=== PATIENT | female | born 1945 | race Two or more races ===

== ENCOUNTER 2020-10-27 06:29 | Inpatient (IN) | payer MEDICAID, MEDICARE ==
[2020-10-27] VITALS (7 sets, daily range): BP systolic 122–180; BP diastolic 66–100
[~2020-10-27] VITALS: Ht 160 cm; Wt 45.4 kg
--- NOTE | 2020-10-27 06:43 | Emergency Room Report ---
History of Present Illness General Chief Complaint: Dyspnea/Respdistress Present Illness HPI 75-year-old female with history of congestive heart failure and sarcoidosis here with shortness of breath. Patient says that she suffers from chronic shortness of breath but it has acutely worsened over the past 3 weeks and then acutely worsened even more so over the past 24 hours. Says that she now also has severe orthopnea. She is on 2.5 L nasal cannula at home as needed. She has been using this but still feels severely short of breath. She is also complaining of chest tightness in the substernal region that radiates to her left shoulder. This has been ongoing for about 24 hours as well. Denies headache, vision changes, fevers, chills, cough, back pain, abdominal pain, nausea, vomiting, dysuria. Says that she has had some loose stools over the past 24 hours as well. Does not know whether she has been exposed to Covid. Allergies: Coded Allergies: No Known Allergies (Unverified , 10/27/20) COVID-19 Screening Contact w/high risk pt: No Experienced COVID-19 symptoms?: No COVID-19 Testing performed FRUIT COORDINATOR: No Patient History Now: No Nursing Documentation-PMH Hx Cardiac Problems: Yes - defibulator Hx Hypertension: Yes Review of Systems All Other Systems: negative except mentioned in HPI Physical Exam Vital Signs Date Time Temp Pulse Resp B/P (MAP) Pulse Ox O2 Delivery O2 Flow Rate FiO2 10/27/20 06:30 99.0 93 22 166/93 (117) 91 Room Air Sp02 EP Interpretation: reviewed, normal General Appearance: no apparent distress, alert, non-toxic Head: normocephalic, atraumatic Eyes: bilateral eye normal inspection, bilateral eye PERRL ENT: hearing grossly normal, normal pharynx, no angioedema, normal voice Neck: full range of motion, supple/symm/no masses Respiratory: chest non-tender, normal breath sounds, speaking full sentences, other - Tachypneic and use of accessory musculature. Rales in all lung ambrose Cardiovascular #1: no edema, other - Echocardiogram 116 bpm, regular rhythm Cardiovascular #2: 2+ carotid (R), 2+ carotid (L), 2+ radial (R), 2+ radial (L), 2+ dorsalis pedis (R), 2+ dorsalis pedis (L) Gastrointestinal: normal bowel sounds, non tender, soft, non-distended, no guarding, no rebound Rectal: deferred Genitourinary: normal inspection, no CVA tenderness Musculoskeletal: back normal, normal range of motion, gait/station normal, non- tender Neurologic: alert, motor strength/tone normal, oriented x3, sensory intact, responsive, speech normal Psychiatric: judgement/insight normal, memory normal, mood/affect normal, no suicidal/homicidal ideation Lymphatic: no adenopathy Medical Decision Making Diagnostic Impression: Primary Impression: Dyspnea Additional Impressions: Respiratory distress Respiratory acidosis CHF (congestive heart failure) NSTEMI (non-ST elevated myocardial infarction) Pneumonia Hypertensive emergency ER Course EKG: NSR 107 bpm, no ischemia, intervals WNL. No ectopy. Left ventricular hypertrophy. T wave inversions in V4, V5, V6, 1. Rhythm strip: patient monitored for arrhythmias - no malignant dysrhythmias, runs of PVCs, nor pauses noted Total critical care time: Approximately 45 minutes Due to a high probability of clinically significant, life threatening deterioration, the patient required the highest level of preparedness to intervene emergently and I personally spent this critical care time directly and personally managing the patient. This critical care time included obtaining a history, examining the patient, pulse oximetry, ordering and reviewing studies, ordering treatments, evaluating response to treatment and updating management plan as needed, frequent reassessment and discussion with other providers as well as arranging for ultimate disposition. This critical to care time was performed to assess and manage the high probability of life-threatening deterioration that could result in multiorgan failure. This critical care time is separate from the separately billable procedures and treating other patients. Laboratory Tests Test 10/27/20 06:45 10/27/20 06:50 10/27/20 07:25 White Blood Count 7.1 K/UL (4.8-10.8) Red Blood Count 4.92 M/UL (4.20-5.40) Hemoglobin 12.9 G/DL (12.0-16.0) Hematocrit 39.5 % (37.0-47.0) Mean Corpuscular Volume 80 FL (80-99) Mean Corpuscular Hemoglobin 26.2 PG (27.0-31.0) L Mean Corpuscular Hemoglobin Concent 32.7 G/DL (32.0-36.0) Red Cell Distribution Width 16.5 % (11.6-14.8) H Platelet Count 195 K/UL (150-450) Mean Platelet Volume 9.1 FL (6.5-10.1) Neutrophils (%) (Auto) 53.4 % (45.0-75.0) Lymphocytes (%) (Auto) 34.2 % (20.0-45.0) Monocytes (%) (Auto) 9.3 % (1.0-10.0) Eosinophils (%) (Auto) 1.4 % (0.0-3.0) Basophils (%) (Auto) 1.8 % (0.0-2.0) Prothrombin Time 11.8 SEC (9.30-11.50) H Prothrombin Time INR 1.1 (0.9-1.1) Activated Partial Thromboplast Time 28 SEC (23-33) D-Dimer 2.02 mg/L FEU (0.00-0.49) H Sodium Level 141 MMOL/L (136-145) Potassium Level 3.9 MMOL/L (3.5-5.1) Chloride Level 106 MMOL/L (98-107) Carbon Dioxide Level 32 MMOL/L (21-32) Anion Gap 3 mmol/L (5-15) L Blood Urea Nitrogen 8 mg/dL (7-18) Creatinine 1.0 MG/DL (0.55-1.30) Estimated Glomerular Filtration Rate 53.9 mL/min (>60) Glucose Level 124 MG/DL (74-106) H Lactic Acid Level 1.60 mmol/L (0.4-2.0) Calcium Level 8.7 MG/DL (8.5-10.1) Magnesium Level 2.0 MG/DL (1.8-2.4) Ferritin 58 NG/ML (8-388) Total Bilirubin 0.4 MG/DL (0.2-1.0) Aspartate Amino Transferase (AST) 27 U/L (15-37) Alanine Aminotransferase (ALT) 23 U/L (12-78) Alkaline Phosphatase 72 U/L (46-116) Lactate Dehydrogenase 225 U/L (81-234) Total Creatine Kinase 49 U/L (26-308) Creatine Kinase MB 1.6 NG/ML (0.0-3.6) Creatine Kinase MB Relative Index 3.2 Troponin I 0.082 ng/mL (0.000-0.056) C-Reactive Protein, Quantitative 2.9 mg/dL (0.00-0.90) H Pro-B-Type Natriuretic Peptide 18869 pg/mL (0-125) H Total Protein 7.7 G/DL (6.4-8.2) Albumin 3.2 G/DL (3.4-5.0) L Globulin 4.5 g/dL Albumin/Globulin Ratio 0.7 (1.0-2.7) L Lipase 56 U/L (73-393) L Arterial Blood pH 7.289 (7.350-7.450) Arterial Blood Partial Pressure CO2 66.5 mmHg (35.0-45.0) *H Arterial Blood Partial Pressure O2 237.9 mmHg (75.0-100.0) H Arterial Blood HCO3 31.2 mmol/L (22.0-26.0) H Arterial Blood Oxygen Saturation 99.3 % (95-100) Arterial Blood Base Excess 2.8 (-2-2) H Percy Test Positive Urine Color [place] Urine Appearance Very cloudy Urine pH 8 (4.5-8.0) Urine Specific [place] 1.015 (1.005-1.035) Urine Protein 4+ (NEGATIVE) H Urine Glucose (UA) Negative (NEGATIVE) Urine Ketones 1+ (NEGATIVE) H Urine Blood 5+ (NEGATIVE) H Urine Nitrite Positive (NEGATIVE) H Urine Bilirubin Negative (NEGATIVE) Urine Urobilinogen 1 MG/DL (0.0-1.0) H Urine Leukocyte Esterase 2+ (NEGATIVE) H Urine RBC Tntc /HPF (0 - 2) H Urine WBC 5-10 /HPF (0 - 2) H Urine Squamous Epithelial Cells Few /LPF (NONE/OCC) Urine Bacteria Moderate /HPF (NONE) H Microbiology Date/Time Source Procedure Growth Status 10/27/20 07:20 Nose - Final Complete 10/27/20 07:20 Nose - Final Complete Chest x-ray: AICD in place. Large effusion versus consolidation of the majority of the right lung field. Small pleural effusion in the left lung. 75-year-old female with history of CHF and sarcoidosis on oxygen therapy at home here with shortness of breath. Patient oxygen saturation in the low 90s on room air. She was placed on 4 L nasal cannula with improvement in her hypoxia however she continued to exhibit evidence of shortness of breath. ABG showed that the patient was suffering from a respiratory acidosis with an elevated PCO2 and a low pH. She was immediately placed on BiPAP. Patient was highly anxious and was given 0.5 mg of Ativan with good resolution of her anxiety. She remained hemodynamically stable and appeared much improved on the BiPAP. Chest x-ray showed near whiteout of the entire right lung field with a large pleural effusion. Patient also had mildly elevated BNP of greater than 16,000. This appeared to be related to CHF versus a possible pneumonia. Patient showed evidence of urinary tract infection on urinalysis. She received ceftriaxone and azithromycin for coverage of UTI as well as community-acquired pneumonia. Patient has not been admitted to the hospital within the past several months. Flu negative. She was initially hypertensive with a blood pressure of around 190/100. She received hydralazine and sublingual nitroglycerin with good resolution of her hypertension. Repeat blood pressure was 138/79 and remained around this range for the rest of her stay in the emergency department. Patient to be admitted to stepdown unit. Last Vital Signs Date Time Temp Pulse Resp B/P (MAP) Pulse Ox O2 Delivery O2 Flow Rate FiO2 10/27/20 06:30 99.0 93 22 166/93 (117) 91 Room Air Scripts Unable to Obtain Active Prescriptions or Reported Meds Kavon Rouse M.D. Oct 27, 2020 06:43
[2020-10-27] MEDS ORDERED: LORazepam Inj 2mg/ml 1ml ONE (07:15)
[2020-10-27] MEDS ORDERED: LORazepam Inj 2mg/ml 1ml IV ONE (07:15)
[2020-10-27 07:31] LABS: CALCIUM 8.7 MG/DL (8.5-10.1); POTASSIUM 3.9 MMOL/L (3.5-5.1)
[2020-10-27 07:32] LABS: APPEARANCE,URINE VERY CLOUDY; BILIRUBIN, URINE NEGATIVE (NEGATIVE); COLOR,URINE ORANGE; GLUCOSE, URINE (UA) NEGATIVE (NEGATIVE); KETONES,URINE 1+ (NEGATIVE); LEUKOCYTE ESTERASE ,URINE 2+ (NEGATIVE); NITRITE,URINE POSITIVE (NEGATIVE); PH,URINE 8 (4.5-8.0); PROTEIN,URINE 4+ (NEGATIVE); UROBILINOGEN,URINE 1 MG/DL (0.0-1.0)
[2020-10-27 07:34] LABS: INR 1.1 (0.9-1.1)
[2020-10-27 07:35] LABS: BASOPHILS % (AUTO) 1.8 % (0.0-2.0); EOSINOPHILS % (AUTO) 1.4 % (0.0-3.0); HEMATOCRIT 39.5 % (37.0-47.0); HEMOGLOBIN 12.9 G/DL (12.0-16.0); LYMPHOCYTES % (AUTO) 34.2 % (20.0-45.0); MEAN CORPUSCULAR VOLUME 80 FL (80-99); MONOCYTES % (AUTO) 9.3 % (1.0-10.0); NEUTROPHILS % (AUTO) 53.4 % (45.0-75.0); PLATELET COUNT 195 K/UL (150-450); RED BLOOD COUNT 4.92 M/UL (4.20-5.40); RED CELL DISTRIBUTION WIDTH 16.5 % (11.6-14.8); WHITE BLOOD COUNT 7.1 K/UL (4.8-10.8)
[2020-10-27] MEDS: Nitroglycerin Subl 0.4mg tab SL PRN (07:40)
[2020-10-27] MEDS ORDERED: cefTRIAXone 1 GM in NS 55 ML IVPB ONE (07:45)
[2020-10-27 07:51] LABS: ALBUMIN 3.2 G/DL (3.4-5.0); ALBUMIN/GLOBULIN RATIO 0.7 (1.0-2.7); BILIRUBIN,TOTAL 0.4 MG/DL (0.2-1.0); CKMB 1.6 NG/ML (0.0-3.6)
[2020-10-27] MEDS ORDERED: Azithromycin 500 MG in NS 275 ML IV ONE (08:15)
--- NOTE | 2020-10-27 14:18 | Diagnostic Imaging Report ---
Indication: Reason For Exam: SOB Technique: Single AP view of the chest. Comparison: None. Findings: Evaluation of the heart is limited due to overlapping shadows. There is marked left to right shift of the mediastinum. There is a large right pleural effusion with likely resulting atelectasis of the right lobe. There is a small amount of visible aerated right upper lobe. There is diffuse parenchymal thickening. Likely small left pleural effusion with associated streaky airspace opacities. Left approach ICD/pacemaker in situ. IMPRESSION: 1. Large right pleural effusion with likely right lower lobe collapse and resulting left to right mediastinal shift. 2. Diffuse bronchial thickening suggestive of infectious/inflammatory airways disease or atypical pneumonia. 3. Likely small left pleural effusion with associated basilar atelectasis.
[2020-10-27] MEDS: Heparin 5000 units/ml inj SUBQ SCH (20:55)
--- NOTE | 2020-10-27 21:15 | HX and Phyl Repo 2 Sig ---
DATE OF ADMISSION: 10/27/2020 REASON FOR ADMISSION: Shortness of breath. HISTORY OF PRESENT ILLNESS: This is a 75-year-old female with past medical history of hypertension, CHF, and sarcoidosis presented to ER for 3-week history of shortness of breath, which has significantly worsened 1 day ago. Patient states she suffers from chronic shortness of breath and uses 2.5 L oxygen nasal cannula at home as needed. She also complains of chest tightness in the substernal region that radiates to her left shoulder for 24 hours. She states she had some loose stools over 24 hours as well. Chest x-ray showed large left pleural effusion with likely right lower lobe collapse. ABG showed that the patient was suffering from a respiratory acidosis and was placed on BiPAP. The repeat ABG 2 hours later was much better. Currently, she is saturating at 97% on 3 L nasal cannula. Urinalysis showed evidence of UTI. Patient's BNP was greater than 16,000. Troponin was 0.082. COVID-19 test was negative. She received antibiotics. She is now admitted to the hospital for further management and care. PAST MEDICAL HISTORY: Hypertension, CHF, and sarcoidosis. PAST SURGICAL HISTORY: None reported. TRAVEL HISTORY: None reported. REVIEW OF SYSTEMS: HEENT: Denies any headaches, blurry vision, hoarseness, dysphagia, hearing loss, tinnitus, or loss of balance. CHEST AND LUNGS: Denies any chest discomfort or hemoptysis. CARDIOVASCULAR: Denies any exertional chest pain, pressure, palpitations, PND, or ankle swelling. She does report orthopnea. GASTROINTESTINAL: Denies vomiting, abdominal pain, or oily or foul-smelling stools. No constipation or hematochezia. GENITOURINARY: Denies any frequency, urgency, dysuria, hematuria, flank pain, kidney stone, or kidney disease. NEUROLOGICAL: Denies seizure activity, dizziness, or fainting episodes. PHYSICAL EXAMINATION: VITAL SIGNS: Blood pressure 138/71, heart rate 89, respirations 24, weight 45 kg, height 160 cm. HEENT: Head exam reveals that the head is normocephalic, atraumatic without deformity or unusual swelling. Pupils are round, reactive to light and accommodation normally. There is no nystagmus, lid lag, or exophthalmos. Nasal mucosa is pink. Vision is normal. CHEST AND LUNGS: Reveals decreased breath sounds. There is no surgical scar. CARDIOVASCULAR: Reveals normal S1, S2 without murmurs, rubs, or clicks. ABDOMEN: Soft with no tenderness or organomegaly. RECTAL: Deferred. MUSCULOSKELETAL: There is no tenderness to palpation. Range of motion is normal. EXTREMITIES: There is no cyanosis, peripheral edema, or clubbing. There is no evidence of insufficiency or skin changes. Pedal pulses are strong and bounding. NEUROLOGICAL: Cranial nerves II through XII are intact. Gait is normal without ataxia. DTRs are normal. Babinski is downgoing. LABORATORY DATA: CBC unremarkable. Chemistries show anion gap of 3, glucose of 124. CRP 2.9. BNP 16,095. Urinalysis shows 4+ protein, 1+ ketones, 5+ blood, positive nitrite, 2+ leukocyte esterase, and moderate urine bacteria. IMPRESSION: 1. CHF. 2. Respiratory acidosis. 3. UTI. Admit to stepdown unit. Oxygen was started. IV fluids, DVT prophylaxis. We will follow carefully. The care for this patient was discussed with my supervising physician. Time spent for this case was approximately 31 minutes. Pranav Morales M.D. CIRA Dillon DR: SUE JOB#: [id number] CC: [email or web address]
[2020-10-28] VITALS: BP 120/70
[2020-10-28 04:00] VITALS: BP 137/70
[2020-10-28 05:33] LABS: CALCIUM 8.9 MG/DL (8.5-10.1); POTASSIUM 4.9 MMOL/L (3.5-5.1)
[2020-10-28 06:24] LABS: BASOPHILS % (AUTO) 1.6 % (0.0-2.0); EOSINOPHILS % (AUTO) 2.2 % (0.0-3.0); HEMATOCRIT 43.2 % (37.0-47.0); HEMOGLOBIN 13.6 G/DL (12.0-16.0); MEAN CORPUSCULAR VOLUME 83 FL (80-99); MONOCYTES % (AUTO) 9.5 % (1.0-10.0); NEUTROPHILS % (AUTO) 61.7 % (45.0-75.0); PLATELET COUNT 188 K/UL (150-450); RED BLOOD COUNT 5.22 M/UL (4.20-5.40); RED CELL DISTRIBUTION WIDTH 15.3 % (11.6-14.8); WHITE BLOOD COUNT 5.6 K/UL (4.8-10.8)
[2020-10-28] MEDS: Nitroglycerin Subl 0.4mg tab SL PRN (06:29)
[2020-10-28 08:00] VITALS: BP 120/67
[2020-10-28] MEDS: Pantoprazole Inj IV SCH (08:51)
[2020-10-28] MEDS: Heparin 5000 units/ml inj SUBQ SCH ×2 (08:51→20:43)
--- NOTE | 2020-10-28 09:25 | Consultation ---
History of Present Illness General Chief Complaint: Dyspnea/Respdistress Referring physician: Dr. Morales Reason for Consultation: CHF Present Illness HPI 75 yo F admitted through the ER yesterday c/o left sided chest pain and SOB worsening over the last 2 days. PMHx CHF, chronic O2 dependence, COPD. No documented hx of MS or PCI. Work up in the ER positive for UTI, CXR large pleural effusion and collapse of RLL. BNP severely elevated, troponin 0.082. We are asked to see the pt for ACS r/o and management of CHF exacerbation along with other cardiac issues. Allergies: Coded Allergies: No Known Allergies (Unverified , 10/27/20) Medication History Unable to Obtain Active Prescriptions or Reported Meds Patient History Limited by: medical condition History Provided By: Medical Record Healthcare decision maker Resuscitation status Advanced Directive on File Physical Exam Last 24 Hour Vital Signs Date Time Temp Pulse Resp B/P (MAP) Pulse Ox O2 Delivery O2 Flow Rate FiO2 10/28/20 08:00 97.1 96 17 120/67 (84) 95 10/28/20 06:29 127/72 10/28/20 04:00 Nasal Cannula 2.0 10/28/20 04:00 2.0 10/28/20 04:00 97.7 99 18 137/70 (92) 100 10/28/20 03:54 95 10/28/20 00:00 2.0 10/28/20 00:00 Nasal Cannula 2.0 10/28/20 00:00 101 10/28/20 00:00 96.8 92 16 120/70 (87) 100 10/27/20 20:00 Nasal Cannula 2.0 10/27/20 20:00 97.7 94 18 122/77 (92) 100 10/27/20 19:48 2.0 10/27/20 19:34 94 10/27/20 19:24 109 10/27/20 16:00 2.0 10/27/20 16:00 Nasal Cannula 2.0 10/27/20 16:00 97.5 94 18 155/89 (111) 100 10/27/20 15:42 95 10/27/20 15:25 98.8 89 24 138/71 98 Nasal Cannula 2.0 10/27/20 14:33 98.8 92 25 143/78 99 Room Air 35 10/27/20 13:40 99.0 94 27 152/95 100 Room Air 10/27/20 10:28 99.0 102 25 144/66 99 Bi-pap 35 Intake and Output 10/27/20 10/28/20 19:00 07:00 Intake Total 330 ml 240 ml Balance 330 ml 240 ml Intake Oral 240 ml IV Total 330 ml # Voids 1 Laboratory Tests Test 10/27/20 10:26 10/28/20 04:15 Arterial Blood pH 7.355 (7.350-7.450) Arterial Blood Partial Pressure CO2 54.0 mmHg (35.0-45.0) H Arterial Blood Partial Pressure O2 127.1 mmHg (75.0-100.0) H Arterial Blood HCO3 29.5 mmol/L (22.0-26.0) H Arterial Blood Oxygen Saturation 98.9 % (95-100) Arterial Blood Base Excess 2.9 (-2-2) H Percy Test Positive White Blood Count 5.6 K/UL (4.8-10.8) Red Blood Count 5.22 M/UL (4.20-5.40) Hemoglobin 13.6 G/DL (12.0-16.0) Hematocrit 43.2 % (37.0-47.0) Mean Corpuscular Volume 83 FL (80-99) Mean Corpuscular Hemoglobin 26.1 PG (27.0-31.0) L Mean Corpuscular Hemoglobin Concent 31.5 G/DL (32.0-36.0) L Red Cell Distribution Width 15.3 % (11.6-14.8) H Platelet Count 188 K/UL (150-450) Mean Platelet Volume 9.8 FL (6.5-10.1) Neutrophils (%) (Auto) 61.7 % (45.0-75.0) Lymphocytes (%) (Auto) 25.0 % (20.0-45.0) Monocytes (%) (Auto) 9.5 % (1.0-10.0) Eosinophils (%) (Auto) 2.2 % (0.0-3.0) Basophils (%) (Auto) 1.6 % (0.0-2.0) Sodium Level 143 MMOL/L (136-145) Potassium Level 4.9 MMOL/L (3.5-5.1) Chloride Level 107 MMOL/L (98-107) Carbon Dioxide Level 33 MMOL/L (21-32) H Anion Gap 3 mmol/L (5-15) L Blood Urea Nitrogen 11 mg/dL (7-18) Creatinine 1.0 MG/DL (0.55-1.30) Estimat Glomerular Filtration Rate 53.9 mL/min (>60) Glucose Level 79 MG/DL (74-106) Calcium Level 8.9 MG/DL (8.5-10.1) Troponin I 0.097 ng/mL (0.000-0.056) Thyroid Stimulating Hormone (TSH) 0.584 uiU/mL (0.358-3.740) Height (Feet): 5 Height (Inches): 3.00 Weight (Pounds): 100 Medications Current Medications Medications (Trade) Dose Ordered Sig/Elsie Route PRN Reason Start Time Stop Time Status Last Admin Dose Admin Acetaminophen (Tylenol) 650 mg Q4H PRN ORAL Mild Pain (Pain Scale 1-3) 10/27/20 18:00 11/26/20 17:59 Dextrose (Dextrose 50%) 25 ml Q30M PRN IV Hypoglycemia 10/27/20 18:00 01/25/21 17:59 Dextrose (Dextrose 50%) 50 ml Q30M PRN IV Hypoglycemia 10/27/20 18:00 01/25/21 17:59 Furosemide (Lasix) 40 mg DAILY IV 10/28/20 09:00 11/27/20 08:59 10/28/20 08:51 Heparin Sodium (Porcine) (Heparin 5000 units/ml) 5,000 units EVERY 12 HOURS SUBQ 10/27/20 21:00 12/11/20 20:59 10/28/20 08:51 Nitroglycerin (Ntg) 0.4 mg Q5M PRN SL Prn Chest Pain 10/27/20 07:00 11/26/20 06:59 10/28/20 06:29 Pantoprazole (Protonix) 40 mg DAILY IV 10/28/20 09:00 11/27/20 08:59 10/28/20 08:51 Priscilla Archer PA-C Oct 28, 2020 09:25
[2020-10-28 12:00] VITALS: BP 122/78
--- NOTE | 2020-10-28 12:53 | Cardiac Electrophysiology PN ---
Subjective Subjective EP consult dictated. My office pt.VT. S/P ICD by me. PAF, CHF, CAD [id number] Objective Last 24 Hour Vital Signs Date Time Temp Pulse Resp B/P (MAP) Pulse Ox O2 Delivery O2 Flow Rate FiO2 10/28/20 12:00 1.0 10/28/20 12:00 Room Air 10/28/20 12:00 97.1 96 17 122/78 (93) 95 10/28/20 08:00 97.1 96 17 120/67 (84) 95 10/28/20 08:00 Room Air 10/28/20 08:00 2.0 10/28/20 08:00 100 10/28/20 06:29 127/72 10/28/20 04:00 Nasal Cannula 2.0 10/28/20 04:00 2.0 10/28/20 04:00 97.7 99 18 137/70 (92) 100 10/28/20 03:54 95 10/28/20 00:00 2.0 10/28/20 00:00 Nasal Cannula 2.0 10/28/20 00:00 101 10/28/20 00:00 96.8 92 16 120/70 (87) 100 10/27/20 20:00 Nasal Cannula 2.0 10/27/20 20:00 97.7 94 18 122/77 (92) 100 10/27/20 19:48 2.0 10/27/20 19:34 94 10/27/20 19:24 109 10/27/20 16:00 2.0 10/27/20 16:00 Nasal Cannula 2.0 10/27/20 16:00 97.5 94 18 155/89 (111) 100 10/27/20 15:42 95 10/27/20 15:25 98.8 89 24 138/71 98 Nasal Cannula 2.0 10/27/20 14:33 98.8 92 25 143/78 99 Room Air 35 10/27/20 13:40 99.0 94 27 152/95 100 Room Air Intake and Output 10/27/20 10/28/20 19:00 07:00 Intake Total 330 ml 240 ml Balance 330 ml 240 ml Intake Oral 240 ml IV Total 330 ml # Voids 1 Laboratory Tests Test 10/28/20 04:15 White Blood Count 5.6 K/UL (4.8-10.8) Red Blood Count 5.22 M/UL (4.20-5.40) Hemoglobin 13.6 G/DL (12.0-16.0) Hematocrit 43.2 % (37.0-47.0) Mean Corpuscular Volume 83 FL (80-99) Mean Corpuscular Hemoglobin 26.1 PG (27.0-31.0) L Mean Corpuscular Hemoglobin Concent 31.5 G/DL (32.0-36.0) L Red Cell Distribution Width 15.3 % (11.6-14.8) H Platelet Count 188 K/UL (150-450) Mean Platelet Volume 9.8 FL (6.5-10.1) Neutrophils (%) (Auto) 61.7 % (45.0-75.0) Lymphocytes (%) (Auto) 25.0 % (20.0-45.0) Monocytes (%) (Auto) 9.5 % (1.0-10.0) Eosinophils (%) (Auto) 2.2 % (0.0-3.0) Basophils (%) (Auto) 1.6 % (0.0-2.0) Sodium Level 143 MMOL/L (136-145) Potassium Level 4.9 MMOL/L (3.5-5.1) Chloride Level 107 MMOL/L (98-107) Carbon Dioxide Level 33 MMOL/L (21-32) H Anion Gap 3 mmol/L (5-15) L Blood Urea Nitrogen 11 mg/dL (7-18) Creatinine 1.0 MG/DL (0.55-1.30) Estimat Glomerular Filtration Rate 53.9 mL/min (>60) Glucose Level 79 MG/DL (74-106) Calcium Level 8.9 MG/DL (8.5-10.1) Troponin I 0.097 ng/mL (0.000-0.056) Thyroid Stimulating Hormone (TSH) 0.584 uiU/mL (0.358-3.740) Microbiology Date/Time Source Procedure Growth Status 10/27/20 07:25 Urine,Clean Catch Urine Culture - Preliminary Gram Negative Jarrett Resulted 10/27/20 07:20 Nose - Final Complete 10/27/20 07:20 Nose - Final Complete 10/27/20 07:20 Nasopharynx SARS-CoV-2 RdRp Gene Assay - Final Complete Derrell Naranjo MD Oct 28, 2020 12:53
[2020-10-28 15:36] VITALS: BP 138/90
--- NOTE | 2020-10-28 15:45 | Consultation ---
DATE OF CONSULTATION: 10/28/2020 CARDIAC ELECTROPHYSIOLOGY CONSULTATION CONSULTING PHYSICIAN: Derrell Naranjo MD REFERRING PHYSICIAN: Pranav Morales MD REASON FOR CONSULTATION: Management of atrial fibrillation and evaluation of patient's defibrillator and long-term ventricular tachycardia. HISTORY OF PRESENT ILLNESS: Patient is a 75-year-old lady, with I am quite familiar from multiple previous hospitalizations as well as my office visits. Patient has history of hypertension and coronary artery disease with 95% circumflex stenosis as well as history of severe cardiomyopathy, ejection fraction of 18 to 20%, who underwent a dual-chamber [employer] Kevin defibrillator implantation by mi in May of 2013. Patient also has history of severe pulmonary sarcoidosis and cardiac dextroversion due to severe pulmonary fibrosis and scar. Patient presented to the emergency room with left-sided chest pain and shortness of breath, worse in the last 2 days. Patient was admitted and a cardiac electrophysiology consultation was requested in view of patient's runs of ventricular tachycardia. REVIEW OF SYSTEMS: Negative other than what was mentioned in the history of present illness. PAST MEDICAL HISTORY: As mentioned above. FAMILY HISTORY: Noncontributory. SOCIAL HISTORY: She lives at home. Does not smoke or drink alcohol. PHYSICAL EXAMINATION: VITAL SIGNS: Show blood pressure of 122/78, pulse is 96, respirations 18, temperature 97.1. HEAD AND NECK: Shows positive JVD. LUNGS: Clear. CARDIOVASCULAR: Shows regular S1 and S2 with no gallop or murmur. Defibrillator in the left subclavian. ABDOMEN: Soft. EXTREMITIES: No pitting edema. LABORATORY AND DIAGNOSTIC DATA: Her chest x-ray showed defibrillator in the left side with two leads and pulmonary fibrosis with cardiac dextroversion. Her labs show white count of 5.7, hemoglobin 13.7, hematocrit 43.2, and platelet of 188. Sodium is 142, potassium 4.9, BUN of 11, creatinine 1. Troponin 0.08 and 0.09. BNP is 16,000. ASSESSMENT AND PLAN: 1. Runs of nonsustained ventricular tachycardia. Patient had 112 beats of ventricular tachycardia. Patient is already protected by the defibrillator, but the [employer] Kevin defibrillator was implanted. We will re-interrogate the defibrillator for further evaluation. In the meantime, resume patient's carvedilol. 2. Status post St[employer] Kevin ICD implantation by mi in 2012. Again, ICD will be re-interrogated for further evaluation. 3. Atrial fibrillation with rapid ventricular response. We will interrogate the ICD for atrial fibrillation burden. Resume patient's Coreg 12.5 mg b.i.d. Patient likely would benefit from anticoagulation with Eliquis, but in the past she has been on Coumadin. 4. History of coronary artery disease with 95% circumflex stenosis, which is not revascularizable. Last stress test was at [facility], it was in 2014 that showed no ischemia. 5. Severe pulmonary sarcoidosis, followed by Dr. Draper at [facility]. Currently off steroids and off medication. 6. Cardiac dextroversion due to severe pulmonary fibrosis and scar. Thank you very much, Dr. Morales, for allowing me to participate in the care of this patient. Please do not hesitate to contact me for any questions regarding my evaluation. Derrell Naranjo M.D. DR: BISI JOB#: [id number] CC:
--- NOTE | 2020-10-28 17:55 | Pulmonology Progress Note ---
Subjective Interval Events: Now saturating well on RA Constitutional: Reports: no symptoms Respiratory: Reports: no symptoms Cardiovascular: Reports: no symptoms Gastrointestinal/Abdominal: Reports: no symptoms Genitourinary: Reports: no symptoms Allergies: Coded Allergies: No Known Allergies (Unverified , 10/27/20) Objective Last 24 Hour Vital Signs Date Time Temp Pulse Resp B/P (MAP) Pulse Ox O2 Delivery O2 Flow Rate FiO2 10/28/20 15:39 96 10/28/20 15:39 Room Air 10/28/20 15:38 1.0 10/28/20 15:36 98.2 95 17 138/90 (106) 95 10/28/20 12:00 1.0 10/28/20 12:00 Room Air 10/28/20 12:00 94 10/28/20 12:00 97.1 96 17 122/78 (93) 95 10/28/20 08:00 97.1 96 17 120/67 (84) 95 10/28/20 08:00 Room Air 10/28/20 08:00 2.0 10/28/20 08:00 100 10/28/20 06:29 127/72 10/28/20 04:00 Nasal Cannula 2.0 10/28/20 04:00 2.0 10/28/20 04:00 97.7 99 18 137/70 (92) 100 10/28/20 03:54 95 10/28/20 00:00 2.0 10/28/20 00:00 Nasal Cannula 2.0 10/28/20 00:00 101 10/28/20 00:00 96.8 92 16 120/70 (87) 100 10/27/20 20:00 Nasal Cannula 2.0 10/27/20 20:00 97.7 94 18 122/77 (92) 100 10/27/20 19:48 2.0 10/27/20 19:34 94 10/27/20 19:24 109 Intake and Output 10/27/20 10/28/20 19:00 07:00 Intake Total 330 ml 240 ml Balance 330 ml 240 ml Intake Oral 240 ml IV Total 330 ml # Voids 1 General Appearance: no acute distress HEENT: normocephalic Respiratory: chest wall non-tender Cardiovascular: normal peripheral pulses Abdomen: soft, non tender Microbiology Date/Time Source Procedure Growth Status 10/27/20 07:25 Urine,Clean Catch Urine Culture - Preliminary Gram Negative Jarrett Resulted 10/27/20 07:20 Nose - Final Complete 10/27/20 07:20 Nose - Final Complete 10/27/20 07:20 Nasopharynx SARS-CoV-2 RdRp Gene Assay - Final Complete Laboratory Tests 10/28/20 04:15: White Blood Count 5.6, Red Blood Count 5.22, Hemoglobin 13.6, Hematocrit 43.2, Mean Corpuscular Volume 83, Mean Corpuscular Hemoglobin 26.1L, Mean Corpuscular Hemoglobin Concent 31.5L, Red Cell Distribution Width 15.3H, Platelet Count 188, Mean Platelet Volume 9.8, Neutrophils (%) (Auto) 61.7, Lymphocytes (%) (Auto) 25.0, Monocytes (%) (Auto) 9.5, Eosinophils (%) (Auto) 2.2, Basophils (%) (Auto) 1.6, Sodium Level 143, Potassium Level 4.9, Chloride Level 107, Carbon Dioxide Level 33H, Anion Gap 3L, Blood Urea Nitrogen 11, Creatinine 1.0, Estimat Glomerular Filtration Rate 53.9, Glucose Level 79, Calcium Level 8.9, Troponin I 0.097H, Thyroid Stimulating Hormone (TSH) 0.584 10/28/20 14:13: Arterial Blood pH 7.427, Arterial Blood Partial Pressure CO2 50.0H, Arterial Blood Partial Pressure O2 68.7L, Arterial Blood HCO3 32.2H, Arterial Blood Oxygen Saturation 93.8L, Arterial Blood Base Excess 6.6H, Percy Test Positive Current Medications Medications (Trade) Dose Ordered Sig/Elsie Route PRN Reason Start Time Stop Time Status Last Admin Dose Admin Acetaminophen (Tylenol) 650 mg Q4H PRN ORAL Mild Pain (Pain Scale 1-3) 10/27/20 18:00 11/26/20 17:59 Carvedilol (Coreg) 12.5 mg EVERY 12 HOURS ORAL 10/28/20 21:00 11/27/20 20:59 Dextrose (Dextrose 50%) 25 ml Q30M PRN IV Hypoglycemia 10/27/20 18:00 01/25/21 17:59 Dextrose (Dextrose 50%) 50 ml Q30M PRN IV Hypoglycemia 10/27/20 18:00 01/25/21 17:59 Furosemide (Lasix) 40 mg DAILY IV 10/28/20 09:00 11/27/20 08:59 10/28/20 08:51 Heparin Sodium (Porcine) (Heparin 5000 units/ml) 5,000 units EVERY 12 HOURS SUBQ 10/27/20 21:00 12/11/20 20:59 10/28/20 08:51 Nitroglycerin (Ntg) 0.4 mg Q5M PRN SL Prn Chest Pain 10/27/20 07:00 11/26/20 06:59 10/28/20 06:29 Pantoprazole (Protonix) 40 mg DAILY IV 10/28/20 09:00 11/27/20 08:59 10/28/20 08:51 Assessment/Plan Assessment/Plan ASSESSMENT AND PLAN: 1. Runs of nonsustained ventricular tachycardia. Patient had 112 beats of ventricular tachycardia. Patient is already protected by the defibrillator, but the [employer] defibrillator was implanted. Plans noted to re-interrogate the defibrillator for further evaluation. 2. Status post [employer] Kevin ICD implantation in 2012. 3. Atrial fibrillation with rapid ventricular response. Resume patient's Coreg 12.5 mg b.i.d. Patient likely would benefit from anticoagulation with Eliquis, but in the past she has been on Coumadin. 4. History of coronary artery disease with 95% circumflex stenosis, which is not revascularizable. Last stress test was at [facility], it was in 2014 that showed no ischemia. 5. Severe pulmonary sarcoidosis, followed by Dr. Draper at [facility]. Currently off steroids and off medication. 6. Cardiac dextroversion due to severe pulmonary fibrosis and scar. Pranav Morales MD Oct 28, 2020 17:55
[2020-10-28 19:52] VITALS: BP 152/85
[2020-10-28] MEDS: Carvedilol 12.5mg tab ORAL SCH (20:39)
[2020-10-29] VITALS: BP 159/83
[2020-10-29 04:00] VITALS: BP 136/84
--- NOTE | 2020-10-29 05:55 | Pulmonology Progress Note ---
Subjective Interval Events: Now saturating well on RA Constitutional: Reports: no symptoms Respiratory: Reports: no symptoms Cardiovascular: Reports: no symptoms Gastrointestinal/Abdominal: Reports: no symptoms Genitourinary: Reports: no symptoms Allergies: Coded Allergies: No Known Allergies (Unverified , 10/27/20) Objective Last 24 Hour Vital Signs Date Time Temp Pulse Resp B/P (MAP) Pulse Ox O2 Delivery O2 Flow Rate FiO2 10/29/20 04:00 Room Air 10/29/20 04:00 96.8 87 18 136/84 (101) 95 10/29/20 03:36 93 10/29/20 00:00 81 10/29/20 00:00 96.4 89 18 159/83 (108) 96 10/29/20 00:00 Room Air 10/28/20 20:39 102 152/85 10/28/20 20:00 Room Air 10/28/20 20:00 92 10/28/20 19:52 97.7 102 18 152/85 (107) 95 10/28/20 15:39 96 10/28/20 15:39 Room Air 10/28/20 15:38 1.0 10/28/20 15:36 98.2 95 17 138/90 (106) 95 10/28/20 12:00 1.0 10/28/20 12:00 Room Air 10/28/20 12:00 94 10/28/20 12:00 97.1 96 17 122/78 (93) 95 10/28/20 08:00 97.1 96 17 120/67 (84) 95 10/28/20 08:00 Room Air 10/28/20 08:00 2.0 10/28/20 08:00 100 10/28/20 06:29 127/72 Intake and Output 10/28/20 10/29/20 19:00 07:00 Intake Total 650 ml 240 ml Balance 650 ml 240 ml Intake Oral 650 ml 240 ml # Voids 4 3 # Bowel Movements 2 General Appearance: no acute distress HEENT: normocephalic Respiratory: chest wall non-tender Cardiovascular: normal peripheral pulses Abdomen: soft, non tender Microbiology Date/Time Source Procedure Growth Status 10/27/20 07:25 Urine,Clean Catch Urine Culture - Preliminary Gram Negative Jarrett Resulted 10/27/20 07:20 Nose - Final Complete 10/27/20 07:20 Nose - Final Complete 12/10/20 07:20 Nasopharynx SARS-CoV-2 RdRp Gene Assay - Final Complete 10/27/20 06:45 Blood Blood Culture - Preliminary NO GROWTH AFTER 24 HOURS Resulted 10/27/20 06:30 Blood Blood Culture - Preliminary NO GROWTH AFTER 24 HOURS Resulted Laboratory Tests 10/28/20 14:13: Arterial Blood pH 7.427, Arterial Blood Partial Pressure CO2 50.0H, Arterial Blood Partial Pressure O2 68.7L, Arterial Blood HCO3 32.2H, Arterial Blood Oxygen Saturation 93.8L, Arterial Blood Base Excess 6.6H, Percy Test Positive Current Medications Medications (Trade) Dose Ordered Sig/Elsie Route PRN Reason Start Time Stop Time Status Last Admin Dose Admin Acetaminophen (Tylenol) 650 mg Q4H PRN ORAL Mild Pain (Pain Scale 1-3) 10/27/20 18:00 11/26/20 17:59 10/28/20 22:06 Carvedilol (Coreg) 12.5 mg EVERY 12 HOURS ORAL 10/28/20 21:00 11/27/20 20:59 10/28/20 20:39 Dextrose (Dextrose 50%) 25 ml Q30M PRN IV Hypoglycemia 10/27/20 18:00 01/25/21 17:59 Dextrose (Dextrose 50%) 50 ml Q30M PRN IV Hypoglycemia 10/27/20 18:00 01/25/21 17:59 Furosemide (Lasix) 40 mg DAILY IV 10/28/20 09:00 11/27/20 08:59 10/28/20 08:51 Heparin Sodium (Porcine) (Heparin 5000 units/ml) 5,000 units EVERY 12 HOURS SUBQ 10/27/20 21:00 12/11/20 20:59 10/28/20 20:43 Nitroglycerin (Ntg) 0.4 mg Q5M PRN SL Prn Chest Pain 10/27/20 07:00 11/26/20 06:59 10/28/20 06:29 Pantoprazole (Protonix) 40 mg DAILY IV 10/28/20 09:00 11/27/20 08:59 10/28/20 08:51 Assessment/Plan Assessment/Plan ASSESSMENT AND PLAN: 1. Runs of nonsustained ventricular tachycardia. Patient had 112 beats of ventricular tachycardia. Patient is already protected by the defibrillator, but the [employer] Kevin defibrillator was implanted. Plans noted to re-interrogate the defibrillator for further evaluation. 2. Status post [employer] Kevin ICD implantation in 2012. 3. Atrial fibrillation with rapid ventricular response. Resume patient's Coreg 12.5 mg b.i.d. Patient likely would benefit from anticoagulation with Eliquis, but in the past she has been on Coumadin. 4. History of coronary artery disease with 95% circumflex stenosis, which is not revascularizable. Last stress test was at [facility], it was in 2014 that showed no ischemia. 5. Severe pulmonary sarcoidosis, followed by Dr. Draper at [facility]. Currently off steroids and off medication. 6. Cardiac dextroversion due to severe pulmonary fibrosis and scar. Pranav Morales MD Oct 29, 2020 05:55
[2020-10-29 08:00] VITALS: BP 144/94
[2020-10-29] MEDS: Pantoprazole Inj IV SCH (09:06)
[2020-10-29] MEDS: Carvedilol 12.5mg tab ORAL SCH (09:07)
[2020-10-29] MEDS: Heparin 5000 units/ml inj SUBQ SCH (09:10)
[2020-10-29 12:00] VITALS: BP 140/89
--- NOTE | 2020-10-29 13:44 | Discharge Instructions ---
Discharge Instructions Discharge Instructions Follow up with: PCP within 1 week Services at Discharge: outpatient therapy Diet: regular Resume Normal Activity?: No Activity: as tolerated For Congestive Heart Failure Reminder Report to your physician any weight gain of 5 pounds or more in one week. Levi Nicolas Oct 29, 2020 13:44
--- NOTE | 2020-10-29 16:05 | Cardiac Electrophysiology PN ---
Assessment/Plan Assessment/Plan 1. Runs of nonsustained ventricular tachycardia. Patient had 12 beats of ventricular tachycardia. Patient is already protected by the defibrillator, by the [employer] Kevin defibrillator that I implanted. ICD interrogation showed Nl Fx and 2.5 year battery left 2. Status post [employer] Kevin ICD implantation by me in 2012. 3. Atrial fibrillation with rapid ventricular response. Resume patient's Coreg 12.5 mg b.i.d. Patient likely would benefit from anticoagulation with Eliquis, but in the past she has been on Coumadin. 4. History of coronary artery disease with 95% circumflex stenosis, which is not revascularizable. Last stress test was at [facility], it was in 2014 that showed no ischemia. 5. Severe pulmonary sarcoidosis, followed by Dr. Draper at [facility]. Currently off steroids and off medication. 6. Cardiac dextroversion due to severe pulmonary fibrosis and scar. 7. CHF EF 25% on Lasix ASHWIN RN Subjective Subjective S/P [employer] Kevin ICD by me in 2012. PAF, CHF, CAD ICD interrogated and battery is 2.5 years left Daughter is taking her home without DC order or signing AMA Objective Last 24 Hour Vital Signs Date Time Temp Pulse Resp B/P (MAP) Pulse Ox O2 Delivery O2 Flow Rate FiO2 10/29/20 09:07 89 144/94 10/29/20 08:00 Room Air 10/29/20 08:00 78 10/29/20 08:00 97.3 89 20 144/94 (111) 94 10/29/20 04:00 Room Air 10/29/20 04:00 96.8 87 18 136/84 (101) 95 10/29/20 03:36 93 10/29/20 00:00 81 10/29/20 00:00 96.4 89 18 159/83 (108) 96 10/29/20 00:00 Room Air 10/28/20 20:39 102 152/85 10/28/20 20:00 Room Air 10/28/20 20:00 92 10/28/20 19:52 97.7 102 18 152/85 (107) 95 Intake and Output 10/28/20 10/29/20 19:00 07:00 Intake Total 650 ml 240 ml Balance 650 ml 240 ml Intake Oral 650 ml 240 ml # Voids 4 3 # Bowel Movements 2 Microbiology Date/Time Source Procedure Growth Status 10/27/20 07:25 Urine,Clean Catch Urine Culture - Preliminary Shigella Species Resulted 10/27/20 07:20 Nose - Final Complete 10/27/20 07:20 Nose - Final Complete 10/27/20 07:20 Nasopharynx SARS-CoV-2 RdRp Gene Assay - Final Complete 10/27/20 06:45 Blood Blood Culture - Preliminary NO GROWTH AFTER 24 HOURS Resulted 10/27/20 06:30 Blood Blood Culture - Preliminary NO GROWTH AFTER 24 HOURS Resulted Objective HEAD AND NECK: Shows positive JVD. LUNGS: Clear. CARDIOVASCULAR: Shows regular S1 and S2 with no gallop or murmur. Defibrillator in the left subclavian. ABDOMEN: Soft. EXTREMITIES: No pitting edema. Derrell Naranjo MD Oct 29, 2020 16:05
== END 2020-10-29 12:45 | disposition home or self-care (01) | DRG 292 ==
LOC: EDBD 06:29 → EDBEDREQ 07:10 → EDBEDREQSVC 07:10 → EMR 07:52 → 2W 12:38 → EDBEDREQ 12:47 → 2W 15:37
DX: I11.0 Hypertensive heart disease with heart failure (principal); E87.2 Acidosis; I16.1 Hypertensive emergency; N39.0 Urinary tract infection, site not specified; I50.9 Heart failure, unspecified; I47.2 Ventricular tachycardia; Z20.828 Contact with and (suspected) exposure to other viral communicable diseases; D86.9 Sarcoidosis, unspecified; J44.9 Chronic obstructive pulmonary disease, unspecified; Z99.81 Dependence on supplemental oxygen; I25.10 Atherosclerotic heart disease of native coronary artery without angina pectoris; Z95.810 Presence of automatic (implantable) cardiac defibrillator; I48.91 Unspecified atrial fibrillation
CPT/HCPCS: 36415; 71045; 80048; 80053; 81003; 82550; 82553; 82728; 82803; 83605; 83615; 83690; 83735; 83880; 84443; 84484; 85025; 85379; 85610; 85730; 86140; 86710; 87040; 87086; 87181; 93005; 93306; 94640; 96365; 96367; 96375; 99291; U0002